=== PATIENT | male | born 1935 | race Caucasian/White ===

== ENCOUNTER 2017-02-09 06:12 | Emergency (ER) | payer MEDICARE, BC ==
[2017-02-09 06:30] VITALS: BP 174/106
--- NOTE | 2017-02-09 07:37 | EDM.PDOC ---
ED HPI GENERAL MEDICAL PROBLEM - General Chief Complaint: General Stated Complaint: ALLERGIES Time Seen by Provider: 02/09/17 07:34 Source of Information: Reports: Patient, Family History Limitations: Reports: No Limitations - History of Present Illness INITIAL COMMENTS - FREE TEXT/NARRATIVE: He canot think of anything that he is in continuous contact with, pt has been having recurrent hives since January 17. Pt is vry miserable with the swelling and the itching. Onset: Gradual Duration: Day(s): Location: Reports: Generalized Associated Symptoms: Reports: Other (pt is having recurrent hives. He has only had 3 days since the 17 of January when he did not have hives. He often gets alot of swelling around the facuial area. ) - Related Data Allergies Allergy/AdvReac Type Severity Reaction Status Date / Time meperidine HCl [From Demerol] Allergy Rash Verified 10/07/16 08:40 Sulfa (Sulfonamide Allergy Hives Verified 10/07/16 08:40 Antibiotics) tamsulosin Allergy Cannot Verified 10/07/16 09:19 Remember Home Meds: Home Meds Aspirin [Rossana Chewable] 81 mg PO DAILY 03/27/13 [History] Isosorbide Mononitrate [Imdur] 45 mg PO DAILY 03/27/13 [History] Metoprolol Tartrate [Metoprolol Tartrate] 12.5 mg PO BID 03/27/13 [History] Calcitriol [Rocaltrol] 0.25 mg PO DAILY 08/14/16 [History] Ticagrelor [Brilinta] 90 mg PO BID 08/14/16 [History] atorvaSTATin [Lipitor] 80 mg PO BEDTIME 08/14/16 [History] Glucagon,Human Recombinant [Glucagon Emergency Kit] 1 mg IJ ASDIRECTED PRN 10/05 [History] Nitroglycerin [Nitrostat] 0.4 mg SL ASDIRECTED PRN 10/05/16 [History] Clopidogrel [Plavix] 75 mg PO DAILY 10/07/16 [History] Insulin Aspart [Novolog Flexpen] 4 units SUBCUT TIDMEALS 10/07/16 [History] Insulin Glarg,Human.Rec.Analog [Lantus Solostar] 18 units SUBCUT BEDTIME [History] Cetirizine [ZyrTEC] 10 mg PO DAILY 02/09/17 [History] Past Medical History HEENT History: Reports: Impaired Vision Cardiovascular History: Reports: CAD, [place] Gastrointestinal History: Reports: Hiatal Hernia Genitourinary History: Reports: Prostate Disorder Musculoskeletal History: Reports: Back Pain, Chronic Neurological History: Reports: Head Trauma Endocrine/Metabolic History: Reports: Diabetes, Type II Oncologic (Cancer) History: Reports: Squamous Cell Carcinoma Dermatologic History: Reports: Melanoma - Infectious Disease History Infectious Disease History: Reports: Chicken Pox, Influenza, Measles, Mumps - Past Surgical History Cardiovascular Surgical History: Reports: Coronary Artery Stent Musculoskeletal Surgical History: Reports: Knee Replacement Dermatological Surgical History: Reports: Other (See Below) Social & Family History - Tobacco Use Smoking Status *Q: Never Smoker Second Hand Smoke Exposure: No - Caffeine Use Caffeine Use: Reports: Soda - Alcohol Use Days Per Week of Alcohol Use: 1 Number of Drinks Per Day: 7 Total Drinks Per Week: 7 - Recreational Drug Use Recreational Drug Use: No ED ROS GENERAL - Review of Systems Review Of Systems: See Below Constitutional: Reports: No Symptoms HEENT: Reports: No Symptoms Respiratory: Reports: No Symptoms, Other (pt has no increased sob. ) Cardiovascular: Reports: No Symptoms Endocrine: Reports: High Glucose, Other (pt has been on predisone and his bs has been alot higher. ) GI/Abdominal: Reports: No Symptoms : Reports: No Symptoms Musculoskeletal: Reports: No Symptoms Skin: Reports: Rash Neurological: Reports: No Symptoms Psychiatric: Reports: Other ( Pt is feeling very anxious about The rash. ) Hematologic/Lymphatic: Reports: No Symptoms ED EXAM, GENERAL - Physical Exam Exam: See Below Free Text/Narrative:: pt has been having recurrent hives and is concerned about his diabetes because of the use of the predisone. Exam Limited By: No Limitations General Appearance: Alert, Anxious, Mild Distress Ears: Normal TMs Nose: Normal Inspection Throat/Mouth: Normal Inspection Head: Atraumatic Neck: Normal Inspection Respiratory/Chest: No Respiratory Distress Cardiovascular: Regular Rate, Rhythm GI/Abdominal: Soft, Non-Tender (Male) Exam: Deferred Rectal (Males) Exam: Deferred Back Exam: Normal Inspection Extremities: Normal Inspection Neurological: Alert, Oriented Psychiatric: Anxious Course - Vital Signs Last Recorded V/S: Last Vital Signs Temp 36.0 C 02/09/17 06:30 Pulse 77 02/09/17 06:30 Resp 16 02/09/17 06:30 BP 174/106 H 02/09/17 06:30 Pulse Ox 95 02/09/17 06:30 - Orders/Labs/Meds Labs: Laboratory Tests 02/09/17 02/09/17 Range/Units 07:37 07:37 WBC 7.6 (4.5-11.0) K/uL RBC 4.86 (4.30-5.90) M/uL Hgb 14.8 (12.0-15.0) g/dL Hct 44.6 (40.0-54.0) % MCV 92 (80-98) fL MCH 31 (27-31) pg MCHC 33 (32-36) % Plt Count 186 (150-400) K/uL Neut % (Auto) 64 (36-66) % Lymph % (Auto) 27 (24-44) % [place] % (Auto) 8 H (2-6) % Eos % (Auto) 1 L (2-4) % Baso % (Auto) 0 (0-1) % Sodium 142 (140-148) mmol/L Potassium 3.8 (3.6-5.2) mmol/L Chloride 108 (100-108) mmol/L Carbon Dioxide 30 (21-32) mmol/L Anion Gap 4.4 L (5.0-14.0) mmol/L BUN 28 H (7-18) mg/dL Creatinine 1.9 H (0.8-1.3) mg/dL Est Cr Clr Drug Dosing 29.00 mL/min Estimated GFR (MDRD) 34 L (>60) Glucose 117 H (74-106) mg/dL Calcium 8.5 (8.5-10.1) mg/dL Total Bilirubin 0.7 (0.2-1.0) mg/dL AST 15 (15-37) U/L ALT 22 (12-78) U/L Alkaline Phosphatase 72 (46-116) U/L Total Protein 6.4 (6.4-8.2) g/dL Albumin 3.1 L (3.4-5.0) g/dL Globulin 3.3 (2.3-3.5) g/dL Albumin/Globulin Ratio 0.9 L (1.2-2.2) - Re-Assessments/Exams Free Text/Narrative Re-Assessment/Exam: 02/09/17 08:22 pt had lab work done which showed a stable creatnine. His wbc was not elevated. . He needs to be pushing fluids on a daily basis. I did discuss with the pt that this can be a very extended problem and sometimes it just has to run its course. He will see Dr Wray on the to evaluate the problem. Departure - Departure Time of Disposition: 08:16 Disposition: Home, Self-Care 01 Condition: Fair Clinical Impression: Recurrent urticaria - Discharge Information Referrals: Harry Castillo MD [Primary Care Provider] - Forms: ED Department Discharge Care Plan Goals: benadryl 50mg hs, zyrtec 10mg qam, predisone 10mg daily until he is seen by Dr Wray on the . If pt has sig facial swelling cool pack the area, Push fluids.
== END 2017-02-09 08:40 | disposition home or self-care (01) ==
LOC: JP.ED 06:12
DX: L50.8 Other urticaria (principal); I25.2 Old myocardial infarction; I25.10 Atherosclerotic heart disease of native coronary artery without angina pectoris; E11.9 Type 2 diabetes mellitus without complications; Z85.828 Personal history of other malignant neoplasm of skin; Z95.5 Presence of coronary angioplasty implant and graft; Z96.659 Presence of unspecified artificial knee joint; Z79.4 Long term (current) use of insulin; Z79.02 Long term (current) use of antithrombotics/antiplatelets; Z79.82 Long term (current) use of aspirin; Z79.899 Other long term (current) drug therapy; Z88.2 Allergy status to sulfonamides; Z88.8 Allergy status to other drugs, medicaments and biological substances
CPT/HCPCS: 36415; 80053; 85025; 99283; 99284

== ENCOUNTER 2017-08-21 17:15 | Emergency (ER) | payer MEDICARE, BC ==
[2017-08-21 17:39] VITALS: BP 154/82
--- NOTE | 2017-08-21 18:11 | EDM.PDOC ---
ED HPI GENERAL MEDICAL PROBLEM - General Chief Complaint: Lower Extremity Injury/Pain Stated Complaint: LEFT LOWER LEG LUMP Time Seen by Provider: 08/21/17 18:04 Source of Information: Reports: Patient, Family, RN Notes Reviewed History Limitations: Reports: No Limitations - History of Present Illness INITIAL COMMENTS - FREE TEXT/NARRATIVE: 82-year-old gentleman presents emergency department today with a lump on his left leg states he woke up from a nap noticed this is on the left lower extremity he has no other symptoms is slightly tender to the touch denies Pain Score (Numeric/FACES): 0 - Related Data Allergies Allergy/AdvReac Type Severity Reaction Status Date / Time meperidine HCl [From Demerol] Allergy Rash Verified 08/21/17 17:42 Sulfa (Sulfonamide Allergy Hives Verified 08/21/17 17:42 Antibiotics) tamsulosin Allergy Cannot Verified 08/21/17 17:42 Remember Home Meds: Home Meds Aspirin [Rossana Chewable] 81 mg PO DAILY 03/27/13 [History] Isosorbide Mononitrate [Imdur] 45 mg PO DAILY 03/27/13 [History] Metoprolol Tartrate [Metoprolol Tartrate] 12.5 mg PO BID 03/27/13 [History] atorvaSTATin [Lipitor] 80 mg PO BEDTIME 08/14/16 [History] Nitroglycerin [Nitrostat] 0.4 mg SL ASDIRECTED PRN 10/05/16 [History] Clopidogrel [Plavix] 75 mg PO DAILY 10/07/16 [History] Insulin Aspart [Novolog Flexpen] 2 units SUBCUT TIDMEALS 10/07/16 [History] Insulin Glarg,Human.Rec.Analog [Lantus Solostar] 17 units SUBCUT BEDTIME [History] Cetirizine [ZyrTEC] 10 mg PO DAILY 02/09/17 [History] Levothyroxine [Synthroid] 50 mcg PO ACBREAKFAST 08/21/17 [History] Past Medical History HEENT History: Reports: Hard of Hearing, Impaired Vision Cardiovascular History: Reports: CAD, High Cholesterol, [place] Gastrointestinal History: Reports: Hiatal Hernia Genitourinary History: Reports: Prostate Disorder Musculoskeletal History: Reports: Back Pain, Chronic Neurological History: Reports: Head Trauma Endocrine/Metabolic History: Reports: Diabetes, Type II Oncologic (Cancer) History: Reports: Squamous Cell Carcinoma Dermatologic History: Reports: Melanoma - Infectious Disease History Infectious Disease History: Reports: Chicken Pox, Influenza, Measles, Mumps - Past Surgical History HEENT Surgical History: Reports: None Cardiovascular Surgical History: Reports: Coronary Artery Stent GI Surgical History: Reports: Hernia, Inguinal Musculoskeletal Surgical History: Reports: Knee Replacement Social & Family History - Tobacco Use Smoking Status *Q: Never Smoker Second Hand Smoke Exposure: No - Caffeine Use Caffeine Use: Reports: Soda - Alcohol Use Days Per Week of Alcohol Use: 1 Number of Drinks Per Day: 7 Total Drinks Per Week: 7 - Recreational Drug Use Recreational Drug Use: No Review of Systems - Review of Systems Review Of Systems: See Below Constitutional: Reports: No Symptoms Respiratory: Reports: No Symptoms Cardiovascular: Reports: No Symptoms GI/Abdominal: Reports: No Symptoms Musculoskeletal: Reports: No Symptoms Skin: Reports: Lumps Neurological: Reports: No Symptoms ED EXAM, GENERAL - Physical Exam Exam: See Below Free Text/Narrative:: Examination of the left lower extremity I do appreciate superficial lumps consistent with a thrombophlebitis it is slightly tender to touch there is no appreciable erythema pedal pulse is +2 is no tenderness to palpation of the calf Exam Limited By: No Limitations General Appearance: Alert, WD/WN, No Apparent Distress Respiratory/Chest: No Respiratory Distress Course - Vital Signs Last Recorded V/S: Last Vital Signs Temp 96.8 F 08/21/17 17:49 Pulse 61 08/21/17 17:49 Resp 15 08/21/17 17:49 BP 154/82 H 08/21/17 17:49 Pulse Ox 96 08/21/17 17:49 - Orders/Labs/Meds Orders: Active Orders 24 hr Category Date Time Status VL Duplex Lwr Ext Veins Ltd Lt [US] Stat Exams 08/21/17 18:08 Taken Rivaroxaban [Xarelto] Med 08/21/17 19:20 Once 10 mg PO ONETIME ONE Labs: Laboratory Tests 08/21/17 08/21/17 08/21/17 Range/Units 18:18 18:18 18:18 WBC 6.6 (4.5-11.0) K/uL RBC 4.90 (4.30-5.90) M/uL Hgb 14.9 (12.0-15.0) g/dL Hct 45.0 (40.0-54.0) % MCV 92 (80-98) fL MCH 30 (27-31) pg MCHC 33 (32-36) % Plt Count 180 (150-400) K/uL Neut % (Auto) 49 (36-66) % Lymph % (Auto) 37 (24-44) % Patrick % (Auto) 11 H (2-6) % Eos % (Auto) 2 (2-4) % Baso % (Auto) 0 (0-1) % PT 10.9 (9.5-12.0) sec INR 1.02 (0.80-1.20) Sodium 142 (140-148) mmol/L Potassium 4.4 (3.6-5.2) mmol/L Chloride 109 H (100-108) mmol/L Carbon Dioxide 26 (21-32) mmol/L Anion Gap 11.4 (5.0-14.0) mmol/L BUN 27 H (7-18) mg/dL Creatinine 1.9 H (0.8-1.3) mg/dL Est Cr Clr Drug Dosing 30.95 mL/min Estimated GFR (MDRD) 34 L (>60) Glucose 122 H (74-106) mg/dL Calcium 9.3 (8.5-10.1) mg/dL Departure - Departure Time of Disposition: 19:25 Disposition: Home, Self-Care 01 Condition: Good Clinical Impression: Superficial thrombophlebitis of lower extremity Qualifiers: Laterality: left Qualified Code(s): I80.02 - Phlebitis and thrombophlebitis of superficial vessels of left lower extremity - Discharge Information Referrals: Harry Castillo MD [Primary Care Provider] - Forms: ED Department Discharge Additional Instructions: Start your a Xeralto 10 mg tomorrow, stop your Plavix, plan to continue this medication for 45 days, please follow-up with your primary care provider in the next 7-10 days for reevaluation and plan for repeat ultrasound in the future, call return to the emergency department worsening of symptoms - My Orders Last 24 Hours: My Active Orders 08/21/17 18:08 VL Duplex Lwr Ext Veins Ltd Lt [US] Stat 08/21/17 19:20 Rivaroxaban [Xarelto] 10 mg PO ONETIME ONE - Assessment/Plan Last 24 Hours: My Active Orders 08/21/17 18:08 VL Duplex Lwr Ext Veins Ltd Lt [US] Stat 08/21/17 19:20 Rivaroxaban [Xarelto] 10 mg PO ONETIME ONE Plan: Assessment Acuity = acute Site and laterality = superficial thrombophlebitis greater than 7 cm Etiology = unclear etiology Manifestations = none Location of injury = Home Lab values = CBC, INR within normal limits creatinine elevated at 1.9 consistent chronic renal failure stage G IIIB Plan Elected to place him on xeralto to 10 mg once a day 10 days he will stop the Plavix, follow-up with primary care 7-10 days for reevaluation plan for repeat ultrasound later with good resolution of his clot he can stop the Zaroxolyn so and return to Plavix This note was dictated using Invisible voice recognition software please call with any questions on syntax or galdino.
[2017-08-21] MEDS ORDERED: Rivaroxaban 10 MG Tab PO ONE (19:20)
== END 2017-08-21 19:40 | disposition home or self-care (01) ==
LOC: JP.ED 17:15
DX: I80.02 Phlebitis and thrombophlebitis of superficial vessels of left lower extremity (principal); I25.10 Atherosclerotic heart disease of native coronary artery without angina pectoris; E11.9 Type 2 diabetes mellitus without complications; Z95.5 Presence of coronary angioplasty implant and graft; Z79.4 Long term (current) use of insulin; Z79.02 Long term (current) use of antithrombotics/antiplatelets; Z79.82 Long term (current) use of aspirin; Z79.899 Other long term (current) drug therapy; Z88.2 Allergy status to sulfonamides; Z88.8 Allergy status to other drugs, medicaments and biological substances; Z88.5 Allergy status to narcotic agent
CPT/HCPCS: 36415; 80048; 85025; 85610; 93971; 99284; A9270

== ENCOUNTER 2017-08-31 09:12 | Observation (INO) | payer MEDICARE, BC ==
[2017-08-31] MEDS ORDERED: Nitroglycerin 0.4 MG Tab.SL SL ONE (09:48)
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
[2017-08-31] MEDS ORDERED: Clopidogrel 75 MG Tab PO ONE (11:05)
[2017-08-31] MEDS ORDERED: Heparin Sodium 5,000 Units/ML Vial IVPUSH ONE (11:07)
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
[2017-08-31] MEDS ORDERED: 50% Dextrose in Water 50 ML Syringe IV PRN (14:03)
[2017-08-31] MEDS ORDERED: Magnesium Hydroxide 400 MG/5 ML Susp 30 ML Cup PO PRN (14:03)
[2017-08-31] MEDS ORDERED: Morphine 2 MG/ML Syringe IVPUSH PRN (14:03)
[2017-08-31] MEDS ORDERED: Nitroglycerin 0.4 MG Tab.SL SL PRN (14:03)
[2017-08-31] MEDS ORDERED: Polyethylene Glycol 3350 Powder 17 GM Packet PO PRN (14:03)
[2017-08-31] MEDS ORDERED: Acetaminophen 325 MG Tab PO PRN (14:03)
[2017-08-31] MEDS ORDERED: Glucose Gel 15 GM in 37.5 GM Tube PO PRN (14:03)
[2017-08-31] MEDS ORDERED: Heparin Sodium/D5W 25,000 UNITS/500 ML BAG IV SCH (14:03)
[2017-08-31] MEDS ORDERED: oxyCODONE 5 MG Tab PO PRN (14:03)
[2017-08-31] MEDS ORDERED: Ondansetron 4 MG Tab.DIS PO PRN (14:03)
[2017-08-31] MEDS ORDERED: Sodium Chloride 0.9% 10 ML Syringe FLUSH PRN (14:03)
[2017-08-31] MEDS: INSULIN ASPART 100 UNIT/ML SUBCUT SCH ×4 (15:21→19:57)
[2017-08-31] MEDS ORDERED: [UNRECOGNIZED DRUG - OTHER] SUBCUT SCH (21:00)
[2017-08-31] MEDS ORDERED: atorvaSTATin 20 MG Tab PO SCH (21:00)
[2017-08-31] MEDS ORDERED: INSULIN GLARGINE SUBCUT SCH (21:00)
[2017-08-31] MEDS ORDERED: Non-Formulary Medication 1 Each (Atorvastatin [Lipitor] 80 MG) PO SCH (21:00)
[2017-08-31] MEDS ORDERED: LANTUS INSULIN SUBCUT SCH (21:00)
[2017-08-31] MEDS: Metoprolol Tartrate 25 MG Tab PO SCH (21:05)
[2017-09-01] MEDS: INSULIN ASPART 100 UNIT/ML SUBCUT SCH ×2 (07:28→11:24)
[2017-09-01] MEDS ORDERED: Levothyroxine 50 MCG Tab PO SCH (07:30)
[2017-09-01] MEDS ORDERED: Montelukast 10 MG Tab PO SCH (09:00)
[2017-09-01] MEDS ORDERED: Isosorbide Mononitrate 30 MG Tab.ER PO SCH (09:00)
[2017-09-01] MEDS ORDERED: Cetirizine 10 MG Tab PO SCH (09:00)
[2017-09-01] MEDS ORDERED: Aspirin 81 MG Tab.Chew PO SCH (09:00)
[2017-09-01] MEDS ORDERED: Clopidogrel 75 MG Tab PO SCH (09:00)
[2017-09-01 09:33] VITALS: BP 128/82
[2017-09-01] MEDS: Metoprolol Tartrate 25 MG Tab PO SCH (09:37)
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
== END 2017-09-01 13:24 | disposition home or self-care (01) ==
LOC: JP.ED 09:12 → JP.ICU 13:11
PROVIDERS: ADMIT Hospitalist; ATTEND Hospitalist
DX: R07.9 Chest pain, unspecified (principal); I21.4 Non-ST elevation (NSTEMI) myocardial infarction; E11.22 Type 2 diabetes mellitus with diabetic chronic kidney disease; N18.3 Chronic kidney disease, stage 3 (moderate); I80.02 Phlebitis and thrombophlebitis of superficial vessels of left lower extremity; I25.10 Atherosclerotic heart disease of native coronary artery without angina pectoris; E78.00 Pure hypercholesterolemia, unspecified; I25.2 Old myocardial infarction; Z79.82 Long term (current) use of aspirin; Z79.4 Long term (current) use of insulin; Z79.899 Other long term (current) drug therapy; Z88.2 Allergy status to sulfonamides; Z88.8 Allergy status to other drugs, medicaments and biological substances; Z95.5 Presence of coronary angioplasty implant and graft; Z98.890 Other specified postprocedural states
CPT/HCPCS: 36415; 80048; 80053; 82962; 84484; 85025; 85610; 85730; 93005; 93010; 96374; 99217; 99220; 99285; A9270; J1644

== ENCOUNTER 2018-03-28 12:40 | Day surgery (SDC) | payer MEDICARE, BC ==
[2018-03-28] MEDS ORDERED: fentaNYL 100 MCG/2 ML SDV ONE (13:12)
[2018-03-28] MEDS ORDERED: Propofol 200 MG/20 ML SDV ONE (13:12)
[2018-03-28] MEDS ORDERED: Lactated Ringers 1,000 ML IV SCH (13:30)
[2018-03-28] MEDS ORDERED: Lidocaine 1% with EPINEPHrine 1:100,000 50 ML MDV ONE (13:38)
[2018-03-28] MEDS ORDERED: Bupivacaine 0.5% 50 ML MDV ONE (13:38)
[2018-03-28] MEDS ORDERED: Acetaminophen/HYDROcodone 325-5 MG Tab PO PRN (15:03)
[2018-03-28 15:41] VITALS: BP 122/73
--- NOTE | 2018-03-29 07:46 | OR ---
DATE OF PROCEDURE: 03/28/2018 PREOPERATIVE DIAGNOSES: 1. Right medial thigh hematoma. 2. Use of aspirin and Plavix. POSTOPERATIVE DIAGNOSES: 1. Right medial thigh hematoma. 2. Use of Plavix and aspirin. PROCEDURE: Evacuation of right medial thigh hematoma, removing 250 mL of old blood. ANESTHESIA: IV anesthesia with monitored anesthesia care. INDICATIONS: This 83-year-old white male fell through the dock [place] a couple of weeks ago. He developed a hematoma in his right thigh. He does take Plavix and aspirin. The hematoma is getting worse, so he presented to have it evacuated. I counseled him for evacuation of his right medial thigh hematoma, including risks and alternatives. He gave his informed consent to proceed. PROCEDURE IN DETAIL: After adequate IV anesthesia was obtained, the patient's right upper leg was prepped and draped in usual sterile fashion. Time-out was held. Lidocaine 1% with epinephrine in a 50:50 mix with 0.5% Marcaine was infiltrated over the hematoma. A longitudinal incision was made. This was carried deep bluntly into the hematoma. We then removed 250 mL of old clotted blood. When no more blood could be removed, the incision was copiously irrigated with normal saline. The incision was then closed with interrupted 3-0 Vicryl suture for the deep tissue and skin julieta for the skin. A compressive dressing was applied. He tolerated the procedure well. He was brought to the recovery room in good condition. Estevan Hernández MD /[id number]
== END 2018-03-28 16:20 | disposition home or self-care (01) ==
LOC: JP.SDS 12:40
PROVIDERS: ATTEND Surgery
DX: S70.11XA Contusion of right thigh, initial encounter (principal); I25.10 Atherosclerotic heart disease of native coronary artery without angina pectoris; I25.2 Old myocardial infarction; I10 Essential (primary) hypertension; K21.9 Gastro-esophageal reflux disease without esophagitis; E78.5 Hyperlipidemia, unspecified; E11.9 Type 2 diabetes mellitus without complications; N40.0 Benign prostatic hyperplasia without lower urinary tract symptoms; Z79.02 Long term (current) use of antithrombotics/antiplatelets; Z79.4 Long term (current) use of insulin; Z79.82 Long term (current) use of aspirin; Z79.899 Other long term (current) drug therapy; Z88.2 Allergy status to sulfonamides; Z88.5 Allergy status to narcotic agent; Z88.6 Allergy status to analgesic agent; Z88.8 Allergy status to other drugs, medicaments and biological substances; W17.4XXA Fall from dock, initial encounter
CPT/HCPCS: 27301; A9270; J2704; J3010; J3490; J7120

== ENCOUNTER 2018-09-12 06:19 | Day surgery (SDC) | payer MEDICARE, BC ==
[2018-09-12] MEDS ORDERED: Lidocaine 1% with EPINEPHrine 1:100,000 50 ML MDV ONE (06:51)
[2018-09-12] MEDS ORDERED: Bupivacaine 0.5% 50 ML MDV ONE (06:51)
[2018-09-12] MEDS ORDERED: Isosulfan Blue 5 ML SDV ONE (06:51)
[2018-09-12] MEDS ORDERED: Dextrose 5%-Lactated Ringers 1,000 ML IV SCH (07:30)
[2018-09-12] MEDS ORDERED: fentaNYL 250 MCG/5 ML SDV ONE (08:09)
[2018-09-12] MEDS ORDERED: Propofol 200 MG/20 ML SDV ONE (08:10)
[2018-09-12] MEDS ORDERED: Ondansetron 4 MG/2 ML SDV ONE (08:10)
[2018-09-12] MEDS ORDERED: Dexamethasone 4 MG/ML SDV ONE (08:10)
[2018-09-12] MEDS ORDERED: Rocuronium 50 MG/5 ML Vial ONE (08:10)
[2018-09-12] MEDS ORDERED: Neostigmine Methylsulfate 1 MG/ML 5 ML Syringe ONE (08:10)
[2018-09-12] MEDS ORDERED: Glycopyrrolate 0.2 MG/ML 5 ML MDV ONE (08:10)
[2018-09-12] MEDS ORDERED: Succinylcholine 200 MG/10 ML MDV ONE (08:10)
--- NOTE | 2018-09-12 09:03 | NM ---
LYMPHOSCINTIGRAPHY RIGHT UPPER EXTREMITY CLINICAL HISTORY: Melanoma right forearm TECHNIQUE: 1.49 mCi of technetium 99m sulfur colloid were injected subcuticular around a right forearm melanoma. Lymphoscintigraphy was performed over the right upper outer chest and axilla. There is a single focus of uptake in the right axilla consistent with a sentinel node IMPRESSION: Successful lymphoscintigraphy of the right upper extremity with a single sentinel node in the right axilla
[2018-09-12] MEDS ORDERED: Acetaminophen/HYDROcodone 325-5 MG Tab PO ONE (10:44)
[2018-09-12 13:25] VITALS: BP 167/90
--- NOTE | 2018-09-12 15:23 | OR ---
DATE OF PROCEDURE: 09/12/2018 PREOPERATIVE DIAGNOSIS: A 1.1 mm thick superficial spreading malignant melanoma , right forearm. POSTOPERATIVE DIAGNOSIS: A 1.1 mm thick superficial spreading malignant melanoma, right forearm. PROCEDURE: Wide local excision (2 cm margin) right forearm superficial spreading malignant melanoma with right axillary sentinel node biopsy. SURGEON: Estevan Hernández MD. ANESTHESIA: General endotracheal. INDICATION: This 83-year-old white male had a lesion on his right forearm. He saw Dermatology who did a shave biopsy. This returned a 1.1 mm thick superficial spreading malignant melanoma. He was referred for wide local excision of this and a sentinel node biopsy. I counseled him for the procedure including risks and alternatives and he gave his informed consent to proceed. PROCEDURE IN DETAIL: In the outpatient unit using sterile technique, technetium -99m sulfur colloid was injected about the malignant melanoma site on his right forearm. We then scanned him in the Nuclear Medicine Department and saw no radionucleotide signal in the epitrochlear nodes. We did find a signal in the axillary nodes on the right consistent with sentinel nodes. He was then taken to the operating room for wide local excision of his right forearm primary site as well as axillary sentinel node biopsy. I counseled him for this procedure including risks and alternatives, and he gave his informed consent to proceed. No frozen section will be done as additional dyes, etc. with a permanent section are needed for this now. DESCRIPTION OF PROCEDURE: After adequate general endotracheal anesthesia was obtained, Isosulfan blue using sterile technique was injected about the melanoma site. His right upper extremity, axilla, shoulder, and right chest were prepped and draped in usual sterile fashion. Time-out was held. A marking pen was used to noah the planned right forearm excision with 2 cm margins, it was oriented longitudinally. The area was then excised including underlying fascia, it was marked with suture to orient it, and sent to pathology in formaldehyde. The incision was irrigated with sterile water and suctioned dry. Interrupted 3-0 Vicryl suture was used to bring the incision together and then a running stitch of 2-0 Prolene was used to approximate the skin. Next, we marked where with the Neoprobe the axillary sentinel node was located. A transverse incision was made at this site. We were able to using blunt dissection, identify and remove 3 sentinel nodes, all of which produced good signals with the Neoprobe. They were sent separately to the laboratory in formaldehyde. This incision was irrigated and suctioned dry with sterile water. An interrupted stitch of 3-0 Vicryl was used to bring the subcutaneous tissue together. Vicryl 4-0 using a subcuticular stitch was placed to approximate the skin. Sterile dressings were applied. The anesthesia was reversed. He was extubated and brought to recovery room in good condition. Estevan Hernández MD /[id number]
== END 2018-09-12 12:10 | disposition home or self-care (01) ==
LOC: JP.SDS 06:19
PROVIDERS: ATTEND Surgery
DX: C43.61 Malignant melanoma of right upper limb, including shoulder (principal); E11.9 Type 2 diabetes mellitus without complications; K21.9 Gastro-esophageal reflux disease without esophagitis; Z88.2 Allergy status to sulfonamides; Z88.8 Allergy status to other drugs, medicaments and biological substances
CPT/HCPCS: 11602; 12031; 38525; 78195; 88305; 88307; 88341; 88342; A9270; A9541; J0330; J1100; J2405; J2704; J2710; J3010; J3490; J7042; Q9968

== ENCOUNTER 2020-05-08 10:43 | Emergency (ER) | payer MEDICARE, BC ==
[2020-05-08] MEDS ORDERED: Aspirin 81 MG Tab.Chew PO ONE (11:48)
[2020-05-08] MEDS ORDERED: Sodium Chloride 0.9% 10 ML Syringe FLUSH PRN (11:48)
[2020-05-08] MEDS ORDERED: Nitroglycerin 0.4 MG Tab.SL SL ONE (11:56)
--- NOTE | 2020-05-08 11:56 | EDM.PDOC ---
ED HPI GENERAL MEDICAL PROBLEM - General Chief Complaint: Chest Pain Stated Complaint: HEART PRESSURE AND PAIN HAS STENTS Time Seen by Provider: 05/08/20 11:45 Source of Information: Reports: Patient, Family, Old Records History Limitations: Reports: No Limitations - History of Present Illness INITIAL COMMENTS - FREE TEXT/NARRATIVE: 85 yo male with a CAD hx presents about 90 min after the onset at home of chest pain not associated with nausea, SOB or diaphoresis. He took NTG x 2 at home with a reduction, but not resolution of his pain. He is here with his . He had been putting some plastic over a door and was noted by his to be SOB with this activity, but his pain only began later after this job was done. He rates his pain now at a 1-/10. He did take all his morning meds already before arrival. Onset: Today, Sudden Onset Date: 05/08/20 Onset Time: 10:25 Duration: Minutes: (90), Improving Location: Reports: Chest Quality: Reports: Dull Severity: Mild Improves with: Reports: Medication (NTG) Worsens with: Reports: Other (uncertain, ? 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 (x 2 ) Chest Pain Score (Numeric/FACES): 2 - Related Data Allergies Allergy/AdvReac Type Severity Reaction Status Date / Time meperidine HCl [From Demerol] Allergy Rash Verified 05/08/20 11:20 Sulfa (Sulfonamide Allergy Hives Verified 05/08/20 11:20 Antibiotics) tamsulosin Allergy Cannot Verified 05/08/20 11:20 Remember Home Meds: Home Meds Aspirin [Rossana Chewable Aspirin] 81 mg PO DAILY 03/27/13 [History] Isosorbide Mononitrate [Imdur] 45 mg PO DAILY 03/27/13 [History] atorvaSTATin [Lipitor] 80 mg PO BEDTIME 08/14/16 [History] Nitroglycerin [Nitrostat] 0.4 mg SL ASDIRECTED PRN 10/05/16 [History] Clopidogrel [Plavix] 75 mg PO DAILY 10/07/16 [History] Insulin Aspart [Novolog Flexpen] 35 - 40 units SUBCUT TIDMEALS 10/07/16 [History] Levothyroxine [Synthroid] 50 mcg PO ACBREAKFAST 08/21/17 [History] Cholecalciferol (Vitamin D3) [Vitamin D3] 5,000 mg PO BEDTIME 08/31/17 [History] Insulin Glargine,Hum.Rec.Anlog [Lantus Solostar] 24 units SQ BEDTIME 09/09/18 [History] Metoprolol Tartrate 12.5 mg PO BID 09/09/18 [History] Past Medical History HEENT History: Reports: Hard of Hearing, Impaired Vision Cardiovascular History: Reports: Blood Clots/VTE/DVT, CAD, High Cholesterol, [place] Gastrointestinal History: Reports: Colon Polyp, GERD, Hiatal Hernia Genitourinary History: Reports: Other (See Below) Other Genitourinary History: "sees kidney doctor" Musculoskeletal History: Reports: Back Pain, Chronic, Fracture Neurological History: Reports: Concussion, Head Trauma Endocrine/Metabolic History: Reports: Diabetes, Type II, Hypothyroidism Hematologic History: Reports: Blood Transfusion(s) Oncologic (Cancer) History: Reports: Basal Cell Carcinoma, Malignant Melanoma Other Oncologic History: melanoma Dermatologic History: Reports: Melanoma - Infectious Disease History Infectious Disease History: Reports: Measles, Mumps - Past Surgical History Head Surgeries/Procedures: Reports: None HEENT Surgical History: Reports: None Cardiovascular Surgical History: Reports: Coronary Artery Stent GI Surgical History: Reports: Cholecystectomy, Colonoscopy, EGD, Hernia, Inguinal Male Surgical History: Reports: None Endocrine Surgical History: Reports: None Neurological Surgical History: Reports: None Musculoskeletal Surgical History: Reports: Knee Replacement Oncologic Surgical History: Reports: None Dermatological Surgical History: Reports: Skin Biopsy Social & Family History - Family History Family Medical History: No Pertinent Family History - Tobacco Use Tobacco Use Status *Q: Never Tobacco User - Caffeine Use Caffeine Use: Reports: None - Recreational Drug Use Recreational Drug Use: No ED ROS GENERAL - Review of Systems Review Of Systems: See Below Constitutional: Reports: No Symptoms HEENT: Reports: No Symptoms Respiratory: Reports: No Symptoms Cardiovascular: Reports: Chest Pain Endocrine: Reports: No Symptoms GI/Abdominal: Reports: No Symptoms : Reports: No Symptoms Musculoskeletal: Reports: No Symptoms Skin: Reports: No Symptoms Neurological: Reports: No Symptoms ED EXAM, GENERAL - Physical Exam Exam: See Below Exam Limited By: No Limitations General Appearance: Alert, WD/WN, No Apparent Distress Eye Exam: Bilateral Eye: Normal Inspection Ears: Normal External Exam, Normal Canal, Hearing Loss Ear Exam: Bilateral Ear: Auricle Normal, Canal Normal Nose: Normal Inspection, No Blood Throat/Mouth: Normal Inspection, Normal Lips, Normal Oropharynx, Normal Voice, No Airway Compromise Head: Atraumatic, Normocephalic Neck: Normal Inspection Respiratory/Chest: No Respiratory Distress, Lungs Clear, Normal Breath Sounds, No Accessory Muscle Use, Chest Non-Tender Cardiovascular: Regular Rate, Rhythm, No Edema GI/Abdominal: Normal Bowel Sounds, Soft, Non-Tender, No Distention. No: Distended Back Exam: Normal Inspection. No: CVA Tenderness (R), CVA Tenderness (L) Extremities: Normal Inspection, Normal Range of Motion, Non-Tender, No Pedal Edema Neurological: Alert, Oriented, CN II-XII Intact, Normal Cognition, No Motor/Sensory Deficits Psychiatric: Normal Affect, Normal Mood Skin Exam: Warm, Dry, Intact, Normal Color, No Rash #1 Interpretation EKG Date: 05/08/20 Time: 11:15 Rhythm: NSR Rate (Beats/Min): 58 [place]: Normal P-Wave: Present QRS: Normal ST-T: Normal QT: Normal Comparison: Change From Previous EKG (Only signficant change is a slowing of the HR from the last EKG.) Course - Vital Signs Last Recorded V/S: Last Vital Signs Temp 35.2 C L 05/08/20 11:25 Pulse 67 05/08/20 15:08 Resp 20 05/08/20 15:08 BP 131/79 05/08/20 15:08 Pulse Ox 95 05/08/20 15:08 - Orders/Labs/Meds Orders: Active Orders 24 hr Category Date Time Status Cardiac Monitoring [RC] .As Directed Care 05/08/20 11:47 Active EKG Documentation Completion [RC] ASDIRECTED Care 05/08/20 11:47 Active Sodium Chloride 0.9% [Saline Flush] Med 05/08/20 11:48 Active 10 ml FLUSH ASDIRECTED PRN Saline Lock Insert [OM.PC] Routine Oth 05/08/20 11:48 Ordered EKG 12 Lead [EK] Routine Ther 05/08/20 11:47 Ordered Medication Orders Sodium Chloride (Saline Flush) 10 ml FLUSH ASDIRECTED PRN PRN Reason: Keep Vein Open Last Admin: 05/08/20 12:17 Dose: 10 ml Documented by: [facility] Labs: Laboratory Tests 05/08/20 05/08/20 05/08/20 Range/Units 11:52 11:52 14:30 WBC 8.1 (4.5-11.0) K/uL RBC 4.84 (4.30-5.90) M/uL Hgb 14.5 (12.0-15.0) g/dL Hct 45.1 (40.0-54.0) % MCV 93 (80-98) fL MCH 30 (27-31) pg MCHC 32 (32-36) % Plt Count 204 (150-400) K/uL Sodium 139 L (140-148) mmol/L Potassium 4.3 (3.6-5.2) mmol/L Chloride 105 (100-108) mmol/L Carbon Dioxide 25 (21-32) mmol/L Anion Gap 13.3 (5.0-14.0) mmol/L BUN 23 H (7-18) mg/dL Creatinine 2.0 H (0.8-1.3) mg/dL Est Cr Clr Drug Dosing 27.00 mL/min Estimated GFR (MDRD) 32 L (>60) Glucose 189 H (74-106) mg/dL Calcium 8.6 (8.5-10.1) mg/dL Troponin I < 0.017 < 0.017 (0.000-0.056) ng/mL Urine Color (YELLOW) Urine Appearance (CLEAR) Urine pH (5.0-8.0) Ur Specific Schneider (1.008-1.030) Urine Protein (NEGATIVE) mg/dL Urine Glucose (UA) (NEGATIVE) mg/dL Urine Ketones (NEGATIVE) mg/dL Urine Occult Blood (NEGATIVE) Urine Nitrite (NEGATIVE) Urine Bilirubin (NEGATIVE) Urine Urobilinogen (0.2-1.0) EU/dL Ur Leukocyte Esterase (NEGATIVE) Urine RBC (0-5) Urine WBC (0-5) Ur Epithelial Cells Amorphous Sediment Urine Bacteria Urine Mucus Urine Other 05/08/20 Range/Units 15:16 WBC (4.5-11.0) K/uL RBC (4.30-5.90) M/uL Hgb (12.0-15.0) g/dL Hct (40.0-54.0) % MCV (80-98) fL MCH (27-31) pg MCHC (32-36) % Plt Count (150-400) K/uL Sodium (140-148) mmol/L Potassium (3.6-5.2) mmol/L Chloride (100-108) mmol/L Carbon Dioxide (21-32) mmol/L Anion Gap (5.0-14.0) mmol/L BUN (7-18) mg/dL Creatinine (0.8-1.3) mg/dL Est Cr Clr Drug Dosing mL/min Estimated GFR (MDRD) (>60) Glucose (74-106) mg/dL Calcium (8.5-10.1) mg/dL Troponin I (0.000-0.056) ng/mL Urine Color Yellow (YELLOW) Urine Appearance Clear (CLEAR) Urine pH 5.5 (5.0-8.0) Ur Specific Schneider 1.025 (1.008-1.030) Urine Protein Trace H (NEGATIVE) mg/dL Urine Glucose (UA) 100 H (NEGATIVE) mg/dL Urine Ketones Negative (NEGATIVE) mg/dL Urine Occult Blood Negative (NEGATIVE) Urine Nitrite Negative (NEGATIVE) Urine Bilirubin Negative (NEGATIVE) Urine Urobilinogen 0.2 (0.2-1.0) EU/dL Ur Leukocyte Esterase Negative (NEGATIVE) Urine RBC Not seen (0-5) Urine WBC 0-5 (0-5) Ur Epithelial Cells Rare Amorphous Sediment Not seen Urine Bacteria Rare Urine Mucus Moderate Urine Other Meds: Medications Generic Name Dose Route Start Last Admin Trade Name Freq PRN Reason Stop Dose Admin Sodium Chloride 10 ml 05/08/20 11:48 05/08/20 12:17 Saline Flush FLUSH 10 ml ASDIRECTED PRN Administration Keep Vein Open Discontinued Medications Generic Name Dose Route Start Last Admin Trade Name Freq PRN Reason Stop Dose Admin Aspirin 324 mg 05/08/20 11:48 05/08/20 12:17 Aspirin PO 05/08/20 11:49 324 mg ONETIME ONE Administration Nitroglycerin 0.4 mg 05/08/20 11:56 05/08/20 12:17 Nitrostat SL 05/08/20 11:57 0.4 mg ONETIME ONE Administration - Re-Assessments/Exams Free Text/Narrative Re-Assessment/Exam: 05/08/20 14:20 CP completely gone now after 1 NTG here in ER. Free Text/Narrative Re-Assessment/Exam: 05/08/20 15:34 No return of sx's with ambulation in the ER. Departure - Departure Time of Disposition: 15:40 Disposition: Home, Self-Care 01 Condition: Good Clinical Impression: Atypical chest pain, Elevated blood sugar, Mild dehydration Instructions: Nonspecific Chest Pain, Adult Referrals: Harry Castillo MD [Primary Care Provider] - Forms: ED Department Discharge Additional Instructions: Continue your usual medications. Drink an extra glass of water daily over your current OR watch your urine color and make sure it is light yellow in color. F/U with your provider in the clinic in the next week or so. Return if worse. Sepsis Event Note (ED) - Evaluation Sepsis Screening Result: No Definite Risk - Focused Exam Vital Signs: Vital Signs Temp Pulse Resp BP BP Pulse Ox 05/08/20 15:08 67 20 131/79 95 05/08/20 13:15 58 L 16 138/80 96 05/08/20 12:17 127/78 05/08/20 11:25 35.2 C L 60 12 145/80 H 96 - My Orders Last 24 Hours: My Active Orders 05/08/20 11:47 Cardiac Monitoring [RC] .As Directed EKG Documentation Completion [RC] ASDIRECTED EKG 12 Lead [EK] Routine 05/08/20 11:48 Sodium Chloride 0.9% [Saline Flush] 10 ml FLUSH ASDIRECTED PRN Saline Lock Insert [OM.PC] Routine - Assessment/Plan Last 24 Hours: My Active Orders 05/08/20 11:47 Cardiac Monitoring [RC] .As Directed EKG Documentation Completion [RC] ASDIRECTED EKG 12 Lead [EK] Routine 05/08/20 11:48 Sodium Chloride 0.9% [Saline Flush] 10 ml FLUSH ASDIRECTED PRN Saline Lock Insert [OM.PC] Routine
[2020-05-08 16:14] VITALS: BP 148/84; PULSE 69
== END 2020-05-08 16:21 | disposition home or self-care (01) ==
LOC: JP.ED 10:43
DX: R07.89 Other chest pain (principal); E86.0 Dehydration; E11.65 Type 2 diabetes mellitus with hyperglycemia; E03.9 Hypothyroidism, unspecified; I25.10 Atherosclerotic heart disease of native coronary artery without angina pectoris; E78.00 Pure hypercholesterolemia, unspecified; I25.2 Old myocardial infarction; Z79.82 Long term (current) use of aspirin; Z79.02 Long term (current) use of antithrombotics/antiplatelets; Z79.4 Long term (current) use of insulin; Z79.899 Other long term (current) drug therapy; Z88.5 Allergy status to narcotic agent; Z88.2 Allergy status to sulfonamides; Z88.8 Allergy status to other drugs, medicaments and biological substances
CPT/HCPCS: 36415; 80048; 81001; 84484; 85027; 93005; 99285; A9270

== ENCOUNTER 2022-07-10 07:15 | Day surgery (SDC) | payer MEDICARE, BC ==
[2022-07-10] MEDS ORDERED: Propofol 200 MG/20 ML SDV ONE (07:22)
[2022-07-10] MEDS ORDERED: fentaNYL 100 MCG/2 ML SDV ONE (07:22)
[2022-07-10] MEDS ORDERED: Sodium Chloride 0.9% 1,000 ML IV SCH (08:30)
[2022-07-10 10:20] LABS: ESTIMATED GFR 39 mL/min (>60)
[2022-07-10] MEDS ORDERED: Iopamidol 612 MG/ML 500 ML Multipack Bottle IV ONE (10:58)
[2022-07-10] MEDS ORDERED: Sodium Chloride 0.9% 50 ML IV SCH (11:00)
[2022-07-10 13:56] VITALS: BP 144/98; PULSE 83
== END 2022-07-10 14:25 | disposition home or self-care (01) ==
LOC: JP.SDS 07:15
PROVIDERS: ATTEND Student in an Organized Health Care Education/Training Program
DX: K29.50 Unspecified chronic gastritis without bleeding (principal); Q45.8 Other specified congenital malformations of digestive system; K31.7 Polyp of stomach and duodenum; K21.00 Gastro-esophageal reflux disease with esophagitis, without bleeding; K57.30 Diverticulosis of large intestine without perforation or abscess without bleeding; K25.9 Gastric ulcer, unspecified as acute or chronic, without hemorrhage or perforation; I12.9 Hypertensive chronic kidney disease with stage 1 through stage 4 chronic kidney disease, or unspecified chronic kidney disease; N18.32 Chronic kidney disease, stage 3b; E03.9 Hypothyroidism, unspecified; E11.22 Type 2 diabetes mellitus with diabetic chronic kidney disease; I25.10 Atherosclerotic heart disease of native coronary artery without angina pectoris; Z88.2 Allergy status to sulfonamides; Z88.5 Allergy status to narcotic agent; Z88.8 Allergy status to other drugs, medicaments and biological substances; Z79.82 Long term (current) use of aspirin; Z79.899 Other long term (current) drug therapy; Z79.890 Hormone replacement therapy; Z79.4 Long term (current) use of insulin
CPT/HCPCS: 36415; 43239; 45378; 74178; 80053; 85027; 85610; 87081; 88305; 88342; 93005; J2704; J3010; J3490; J7030; Q9967

== ENCOUNTER 2022-09-20 23:41 | Emergency (ER) | payer MEDICARE, BC ==
[2022-09-21 01:06] VITALS: BP 157/87; PULSE 61
[2022-09-21 01:09] LABS: TROPONIN I HIGH SENSITIVITY 18.3 pg/mL (<=60.3)
== END 2022-09-21 01:34 | disposition home or self-care (01) ==
LOC: JP.ED 23:41
DX: R07.89 Other chest pain (principal); I25.10 Atherosclerotic heart disease of native coronary artery without angina pectoris; I25.2 Old myocardial infarction; E78.00 Pure hypercholesterolemia, unspecified; E03.9 Hypothyroidism, unspecified; E11.9 Type 2 diabetes mellitus without complications; Z88.6 Allergy status to analgesic agent; Z88.2 Allergy status to sulfonamides; Z88.8 Allergy status to other drugs, medicaments and biological substances; Z79.82 Long term (current) use of aspirin; Z79.899 Other long term (current) drug therapy; Z79.4 Long term (current) use of insulin; Z90.49 Acquired absence of other specified parts of digestive tract
CPT/HCPCS: 36415; 80048; 84484; 85025; 93005; 93010; 99283; 99285

== ENCOUNTER 2023-04-02 15:29 | Emergency (ER) | payer MEDICARE, BC ==
[2023-04-02 15:48] LABS: BASOPHILS ABSOLUTE AUTO 0.05 K/uL (0.00-0.10); BASOPHILS PERCENT AUTO 0.6 % (0.1-1.3); EOSINOPHILS ABSOLUTE AUTO 0.09 K/uL (0.00-0.40); EOSINOPHILS PERCENT AUTO 1.1 % (0.0-5.4); HEMATOCRIT 43.1 % (38.4-49.7); HEMOGLOBIN 14.3 g/dL (12.9-16.9); IMMATURE GRAN PERCENT AUTO 0.1 % (0.0-0.7); LYMPHOCYTES ABSOLUTE AUTO 2.25 K/uL (0.8-3.3); LYMPHOCYTES PERCENT AUTO 27.5 % (11.4-47.7); MEAN CORPUSCULAR HEMOGLOBIN 29.4 pg (31.6-35.5); MEAN CORPUSCULAR HGB CONC 33.2 g/dL (31.6-35.5); MEAN CORPUSCULAR VOLUME 88.7 fL (81.4-99.0); MONOCYTES ABSOLUTE AUTO 0.65 K/uL (0.20-0.90); MONOCYTES PERCENT AUTO 7.9 % (3.3-12.6); NEUTROPHILS ABSOLUTE AUTO 5.13 K/uL (1.0-7.6); NEUTROPHILS PERCENT AUTO 62.8 % (40.0-78.1); PLATELET COUNT,PLT 198 K/uL (130-375); RED BLOOD CELL COUNT 4.86 M/uL (4.14-5.76); WHITE BLOOD CELL COUNT,WBC 8.2 K/uL (3.2-11.0)
[2023-04-02 15:52] LABS: IMMATURE GRAN ABSOLUTE AUTO 0.01 K/uL (0.00-0.23)
[2023-04-02 16:11] LABS: ALANINE AMINOTRANSFERASE,ALT 16 U/L (12-78); ALBUMIN 3.3 g/dL (3.4-5.0); ALKALINE PHOSPHATASE 110 U/L (46-116); ANION GAP 10.9 mmol/L (5.0-14.0); ASPARTATE AMNIOTRANSFERASE,AST 22 U/L (15-37); BILIRUBIN TOTAL 0.6 mg/dL (0.2-1.0); BLOOD UREA NITROGEN,BUN 24 mg/dL (7-18); CALCIUM 8.7 mg/dL (8.5-10.1); CARBON DIOXIDE,CO2 24 mmol/L (21-32); CHLORIDE,CL 106 mmol/L (100-108); CREATININE 2.1 mg/dL (0.8-1.3); EST CRCL DRUG DOSING (CG) 23.52 mL/min; ESTIMATED GFR 30 mL/min (>60); GLUCOSE RANDOM 135 mg/dL (74-106); POTASSIUM,K 4.3 mmol/L (3.6-5.2); PROTEIN TOTAL,TP 7.2 g/dL (6.4-8.2); SODIUM,NA 141 mmol/L (140-148); TROPONIN I HIGH SENSITIVITY 21.4 pg/mL (<=60.3)
[2023-04-02 16:12] LABS: A/G RATIO 0.9 (1.2-2.2)
[2023-04-02] MEDS ORDERED: Aspirin 81 MG Tab.Chew PO ONE (16:19)
[2023-04-02] MEDS ORDERED: Heparin Sodium 5,000 Units/ML Vial IVPUSH ONE ×2 (19:17)
[2023-04-02] MEDS ORDERED: Heparin Sodium/D5W 25,000 UNITS/500 ML BAG IV SCH (19:30)
[2023-04-02] MEDS ORDERED: Sodium Chloride 0.9% 10 ML Syringe FLUSH PRN (19:39)
[2023-04-02] MEDS ORDERED: Metoprolol Tartrate 50 MG Tab PO ONE (19:53)
[2023-04-02 20:00] VITALS: BP 205/114
[2023-04-02 20:08] VITALS: PULSE 79
== END 2023-04-02 20:44 ==
LOC: JP.ED 15:29
DX: I21.4 Non-ST elevation (NSTEMI) myocardial infarction (principal); R91.1 Solitary pulmonary nodule; E11.9 Type 2 diabetes mellitus without complications; Z88.2 Allergy status to sulfonamides; Z88.8 Allergy status to other drugs, medicaments and biological substances; Z79.82 Long term (current) use of aspirin; Z79.4 Long term (current) use of insulin; Z87.891 Personal history of nicotine dependence
CPT/HCPCS: 36415; 71046; 71250; 80053; 84484; 85025; 85730; 93005; 96365; 99285; A9270; J1644

== ENCOUNTER 2023-07-28 13:03 | Emergency (ER) | payer MEDICARE, BC ==
[2023-07-28] MEDS ORDERED: Sodium Chloride 0.9% 10 ML Syringe FLUSH PRN (13:05)
[2023-07-28 13:19] LABS: BASOPHILS PERCENT AUTO 0.2 % (0.1-1.3); EOSINOPHILS ABSOLUTE AUTO 0.05 K/uL (0.00-0.40); EOSINOPHILS PERCENT AUTO 0.6 % (0.0-5.4); HEMATOCRIT 45.6 % (38.4-49.7); HEMOGLOBIN 15.2 g/dL (12.9-16.9); IMMATURE GRAN PERCENT AUTO 0.2 % (0.0-0.7); LYMPHOCYTES ABSOLUTE AUTO 2.96 K/uL (0.8-3.3); LYMPHOCYTES PERCENT AUTO 36.2 % (11.4-47.7); MEAN CORPUSCULAR HEMOGLOBIN 29.9 pg (31.6-35.5); MEAN CORPUSCULAR HGB CONC 33.3 g/dL (31.6-35.5); MEAN CORPUSCULAR VOLUME 89.8 fL (81.4-99.0); MONOCYTES ABSOLUTE AUTO 0.78 K/uL (0.20-0.90); MONOCYTES PERCENT AUTO 9.5 % (3.3-12.6); NEUTROPHILS ABSOLUTE AUTO 4.34 K/uL (1.0-7.6); NEUTROPHILS PERCENT AUTO 53.3 % (40.0-78.1); PLATELET COUNT,PLT 209 K/uL (130-375); RED BLOOD CELL COUNT 5.08 M/uL (4.14-5.76); WHITE BLOOD CELL COUNT,WBC 8.2 K/uL (3.2-11.0)
[2023-07-28 13:23] LABS: BASOPHILS ABSOLUTE AUTO 0.02 K/uL (0.00-0.10); IMMATURE GRAN ABSOLUTE AUTO 0.02 K/uL (0.00-0.23)
[2023-07-28] MEDS: Aspirin 81 MG Tab.Chew PO ONE (13:36)
[2023-07-28 13:37] LABS: INR 1.1; PROTHROMBIN TIME 11.3 sec (9.2-10.6); PTT,PARTIAL THROMBOPLSTIN TIME 26.1 sec (21.8-27.3)
[2023-07-28 13:41] LABS: CALCIUM 9.1 mg/dL (8.5-10.1); EST CRCL DRUG DOSING (CG) 24.7 mL/min
[2023-07-28 15:31] VITALS: BP 109/73; PULSE 74
== END 2023-07-28 16:21 | disposition home or self-care (01) ==
LOC: JP.ED 13:03
DX: R07.89 Other chest pain (principal); E11.9 Type 2 diabetes mellitus without complications; R41.89 Other symptoms and signs involving cognitive functions and awareness; I10 Essential (primary) hypertension; I25.10 Atherosclerotic heart disease of native coronary artery without angina pectoris; I25.2 Old myocardial infarction; E03.9 Hypothyroidism, unspecified; Z79.82 Long term (current) use of aspirin; Z79.899 Other long term (current) drug therapy; Z79.4 Long term (current) use of insulin; Z88.5 Allergy status to narcotic agent; Z88.2 Allergy status to sulfonamides; Z88.8 Allergy status to other drugs, medicaments and biological substances
CPT/HCPCS: 36415; 71045; 80048; 84484; 85025; 85610; 85730; 93005; 93010; 99284; 99285; A9270

== ENCOUNTER 2023-08-02 09:43 | Observation (INO) | payer MEDICARE, BC ==
[2023-08-02] MEDS ORDERED: Naloxone 0.4 MG/ML SDV IVPUSH PRN ×2 (11:05→20:06)
[2023-08-02] MEDS ORDERED: Flumazenil 0.1 MG/ML 5 ML MDV IVPUSH PRN (11:05)
[2023-08-02 11:11] LABS: INR 1.1; PROTHROMBIN TIME 11.1 sec (9.2-10.6)
[2023-08-02] MEDS: Lidocaine 1% 20 ML MDV INJECT ONE ×2 (12:19→18:11)
[2023-08-02] MEDS: Sodium Chloride 0.9% 1,000 ML IV SCH (12:19)
[2023-08-02] MEDS: Midazolam 1 MG/ML 5 ML SDV IVPUSH ONE (12:23)
[2023-08-02] MEDS: fentaNYL 100 MCG/2 ML SDV IVPUSH ONE (12:24)
[2023-08-02 18:59] LABS: CORONAVIRUS COVID-19 NAA NEGATIVE (NEGATIVE); INFLUENZA A NAA NEGATIVE (NEGATIVE); INFLUENZA B NAA NEGATIVE (NEGATIVE); RESPIRATORY SYNCYTIAL VIR NAA NEGATIVE (NEGATIVE)
[2023-08-02] MEDS ORDERED: Morphine 2 MG/ML SYRINGE IVPUSH PRN (20:06)
[2023-08-02] MEDS ORDERED: Acetaminophen 325 MG Tab PO PRN (20:06)
[2023-08-02] MEDS ORDERED: Docusate Sodium 100 MG Cap PO PRN (20:06)
[2023-08-02] MEDS ORDERED: Albuterol/Ipratropium 3.0-0.5 MG/3 ML Neb Soln NEB PRN (20:06)
[2023-08-02] MEDS ORDERED: oxyCODONE 5 MG Tab PO PRN (20:06)
[2023-08-02] MEDS ORDERED: Ondansetron 4 MG Tab.DIS PO PRN (20:06)
[2023-08-02] MEDS ORDERED: LORazepam 2 MG/ML SDV IV PRN (20:06)
[2023-08-02] MEDS ORDERED: 50% Dextrose in Water 50 ML Syringe IV PRN (20:06)
[2023-08-02] MEDS ORDERED: Albuterol 0.083% 2.5 MG/3 ML Neb Soln NEB PRN (20:06)
[2023-08-02] MEDS ORDERED: Bisacodyl 5 MG Tab PO PRN (20:06)
[2023-08-02] MEDS ORDERED: Ondansetron 4 MG/2 ML SDV IV PRN (20:06)
[2023-08-02] MEDS ORDERED: Glucagon,Human Recombinant 1 MG Vial IM PRN (20:28)
[2023-08-02] MEDS ORDERED: 50% Dextrose in Water 50 ML Syringe IVPUSH PRN (20:28)
[2023-08-02] MEDS ORDERED: Nitroglycerin 0.4 MG Tab.SL SL PRN (20:28)
[2023-08-02 20:50] LABS: BASOPHILS ABSOLUTE AUTO 0.04 K/uL (0.00-0.10); BASOPHILS PERCENT AUTO 0.5 % (0.1-1.3); EOSINOPHILS ABSOLUTE AUTO 0.04 K/uL (0.00-0.40); EOSINOPHILS PERCENT AUTO 0.5 % (0.0-5.4); HEMOGLOBIN 14.2 g/dL (12.9-16.9); IMMATURE GRAN PERCENT AUTO 0.2 % (0.0-0.7); LYMPHOCYTES ABSOLUTE AUTO 1.28 K/uL (0.8-3.3); LYMPHOCYTES PERCENT AUTO 14.6 % (11.4-47.7); MEAN CORPUSCULAR HEMOGLOBIN 30.3 pg (31.6-35.5); MEAN CORPUSCULAR HGB CONC 33.8 g/dL (31.6-35.5); MEAN CORPUSCULAR VOLUME 89.6 fL (81.4-99.0); MONOCYTES ABSOLUTE AUTO 0.65 K/uL (0.20-0.90); MONOCYTES PERCENT AUTO 7.4 % (3.3-12.6); NEUTROPHILS ABSOLUTE AUTO 6.71 K/uL (1.0-7.6); NEUTROPHILS PERCENT AUTO 76.8 % (40.0-78.1); PLATELET COUNT,PLT 138 K/uL (130-375); RED BLOOD CELL COUNT 4.69 M/uL (4.14-5.76); WHITE BLOOD CELL COUNT,WBC 8.7 K/uL (3.2-11.0)
[2023-08-02 20:51] LABS: IMMATURE GRAN ABSOLUTE AUTO 0.02 K/uL (0.00-0.23)
[2023-08-02] MEDS: Insulin Glargine,Human Rec. Analog 100 Units/ML 3 ML Pen SUBCUT SCH (20:56)
[2023-08-02] MEDS: Metoprolol Tartrate 50 MG Tab PO SCH (20:58)
[2023-08-02] MEDS: atorvaSTATin 20 MG Tab PO SCH (20:58)
[2023-08-02] MEDS: Pantoprazole 40 MG Vial IV SCH (20:58)
[2023-08-02 21:14] LABS: A/G RATIO 0.8 (1.2-2.2); ALANINE AMINOTRANSFERASE,ALT 14 U/L (12-78); ALKALINE PHOSPHATASE 109 U/L (46-116); ASPARTATE AMNIOTRANSFERASE,AST 17 U/L (15-37); BLOOD UREA NITROGEN,BUN 28 mg/dL (7-18); CALCIUM 8.9 mg/dL (8.5-10.1); CARBON DIOXIDE,CO2 24 mmol/L (21-32); CHLORIDE,CL 103 mmol/L (100-108); EST CRCL DRUG DOSING (CG) 26.36 mL/min; ESTIMATED GFR 32 mL/min (>60); GLUCOSE RANDOM 151 mg/dL (74-106); POTASSIUM,K 4.3 mmol/L (3.6-5.2); PROTEIN TOTAL,TP 6.7 g/dL (6.4-8.2); SODIUM,NA 137 mmol/L (140-148)
[2023-08-02 21:16] LABS: ANION GAP 14.3 mmol/L (5.0-14.0)
[2023-08-02 22:04] LABS: APPEARANCE,URINE CLEAR (CLEAR); BILIRUBIN,URINE NEGATIVE (NEGATIVE); COLOR,URINE YELLOW (YELLOW); GLUCOSE,URINE 100 mg/dL (NEGATIVE); KETONES,URINE 15 mg/dL (NEGATIVE); LEUKOCYTE ESTERASE,URINE NEGATIVE (NEGATIVE); NITRITE,URINE NEGATIVE (NEGATIVE); OCCULT BLOOD,URINE NEGATIVE (NEGATIVE); PH,URINE 5.5 (5.0-8.0); PROTEIN,URINE TRACE mg/dL (NEGATIVE); UROBILINOGEN,URINE 0.2 EU/dL (0.2-1.0)
[2023-08-02 22:09] LABS: AMORPHOUS SEDIMENT,URINE NOT SEEN; BACTERIA,URINE NOT SEEN; EPITHELIAL CELLS,URINE RARE; MUCUS,URINE NOT SEEN; RBC,URINE 0-5 (0-5); WBC,URINE NOT SEEN (0-5)
[2023-08-03] MEDS: Sodium Chloride 0.9% 1,000 ML IV SCH (01:10)
[2023-08-03] MEDS: Insulin Lispro 100 Unit/ML 3 ML KwikPen SUBCUT SCH (07:45)
[2023-08-03] MEDS: Aspirin 81 MG Tab.Chew PO SCH (09:30)
[2023-08-03] MEDS: Levothyroxine 50 MCG Tab PO SCH (09:30)
[2023-08-03] MEDS: Isosorbide Mononitrate 30 MG Tab.ER PO SCH (09:30)
[2023-08-03 10:55] LABS: BASOPHILS ABSOLUTE AUTO 0.03 K/uL (0.00-0.10); BASOPHILS PERCENT AUTO 0.4 % (0.1-1.3); EOSINOPHILS ABSOLUTE AUTO 0.08 K/uL (0.00-0.40); EOSINOPHILS PERCENT AUTO 1.2 % (0.0-5.4); HEMATOCRIT 43.9 % (38.4-49.7); HEMOGLOBIN 14.9 g/dL (12.9-16.9); IMMATURE GRAN ABSOLUTE AUTO 0.03 K/uL (0.00-0.23); IMMATURE GRAN PERCENT AUTO 0.4 % (0.0-0.7); LYMPHOCYTES ABSOLUTE AUTO 1.72 K/uL (0.8-3.3); LYMPHOCYTES PERCENT AUTO 25.8 % (11.4-47.7); MEAN CORPUSCULAR HEMOGLOBIN 30.4 pg (31.6-35.5); MEAN CORPUSCULAR HGB CONC 33.9 g/dL (31.6-35.5); MEAN CORPUSCULAR VOLUME 89.6 fL (81.4-99.0); NEUTROPHILS ABSOLUTE AUTO 4.21 K/uL (1.0-7.6); NEUTROPHILS PERCENT AUTO 63.2 % (40.0-78.1); PLATELET COUNT,PLT 124 K/uL (130-375); WHITE BLOOD CELL COUNT,WBC 6.7 K/uL (3.2-11.0)
[2023-08-03 11:33] VITALS: BP 128/72; PULSE 61
== END 2023-08-03 12:55 | disposition home or self-care (01) ==
LOC: JP.ACU 09:43 → JP.MS 19:37
PROVIDERS: ADMIT Nurse Practitioner; ATTEND Internal Medicine
DX: J95.811 Postprocedural pneumothorax (principal); C34.90 Malignant neoplasm of unspecified part of unspecified bronchus or lung; C79.31 Secondary malignant neoplasm of brain; G30.9 Alzheimer's disease, unspecified; F02.80 Dementia in other diseases classified elsewhere, unspecified severity, without behavioral disturbance, psychotic disturbance, mood disturbance, and anxiety; E11.22 Type 2 diabetes mellitus with diabetic chronic kidney disease; I12.9 Hypertensive chronic kidney disease with stage 1 through stage 4 chronic kidney disease, or unspecified chronic kidney disease; N18.30 Chronic kidney disease, stage 3 unspecified; I25.118 Atherosclerotic heart disease of native coronary artery with other forms of angina pectoris; E78.00 Pure hypercholesterolemia, unspecified; K21.9 Gastro-esophageal reflux disease without esophagitis; E03.9 Hypothyroidism, unspecified; R91.1 Solitary pulmonary nodule; Z20.822 Contact with and (suspected) exposure to COVID-19; Z95.5 Presence of coronary angioplasty implant and graft; Z79.4 Long term (current) use of insulin; Z79.890 Hormone replacement therapy; Z79.899 Other long term (current) drug therapy; Z88.2 Allergy status to sulfonamides; Z88.8 Allergy status to other drugs, medicaments and biological substances
CPT/HCPCS: 0241U; 32408-RT; 32408-RT-26; 32557; 32557-26; 36415; 71045; 71045-26; 71046; 71046-26; 77012; 77012-26; 80053; 81001; 82947; 83735; 85025; 85610; 85730; 88305; 88341; 88342; 96361; 96374; 99223; 99238; A9270-GY; C1729; C1769; C9113; G0378; J1815; J1815-GY; J2250; J7030